=== PATIENT | female | born 1955 | race Caucasian/White ===

== ENCOUNTER 2023-12-15 14:51 | Outpatient (AMB) | payer MEDICARE, SELFPAY ==
--- NOTE | 2023-12-15 15:04 | MHC.PC.OV ---
Vital Signs 12/15/23 15:20 Height 5 ft 0.24 in Weight 144 lb 2 oz BMI 27.9 BP 114/72 Blood Pressure Location Lt brachial Position Sitting Respiration 16 Pulse 83 Temp 97.9 F Temp Source Oral Pulse Oximetry (%) 97 Oxygen Delivery Method Room Air Intake Visit Reasons: NPV needs sooner appt Intake Note: New patient visit Allergies No Known Allergies Allergy (Verified 12/15/23 15:12) Medication List - Last Reconciled 12/15/23 by Carolina Boyce MD aspirin 81 mg PO DAILY atorvastatin 40 mg PO DAILY levothyroxine 75 mcg PO DAILY mesalamine 4.8 grams PO DAILY nabumetone 500 mg PO BID semaglutide 0.5 mg (0.736 mL) subcut QWEEK 12 weeks sertraline 100 mg PO DAILY Tobacco use date assessed: 12/15/23 Fall risk assessment: No Falls in past year Last assessed Fall Risk: 12/15/23 Dental Screening Dental Screen Date: 12/15/23 Did you have a dental visit in the last 12 months?: Yes Did you have a dental problem in the last 6 months where you did not have access to dental care?: No Was dental information given to patient?: Patient has dentist HPI HPI Comments History of Present Illness Details 67 year old female with a past medical history of hypothyroid, crohns, low back pain, ataxia, weakness presenting for follow up Neuro: Follows with Dr Barrett, [facility] [place]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 Near but not compressing the 7th/8th craiinia nerve. Thought unlike causing the balance issues that prompted imaging. Referred to neurology for abalance/vestibular deficit/symptoms, previous infarcts. She saw Dr Ko. Worked up for common causes of neuropathy. Completed PT. Sleep study completed. She has a history of spinal fusion in 2013. [place] diffusely weak on the right side. [place] likely body was a puppet, poor coordination, and excessive fatigue -MRI chronic right gangliocapsular lacunar infarcts. Mild scattered foci of T2 hyperintensity in the supratentorial white matter, nonspecific. No enhancing lesions to indicate active infammatory of demyelinating process -0.7cm left cerebellopontine a ngle meniningioma in close proximity to the left 7th and 8th crania nerves Crohn-On mesalamin 1.2gmx4. Follows [facility], Dr Sanford Hypothyroid-On levothyroxine. Successfully lost over 30 pounds with ozempic. Insurance no longer covering any GLP. She felt so well on the medication Anxiety/depression. Stable on zoloft Mammo UTD Colonoscopy is up to date ROS CONSTITUTIONAL: Denies weight loss, fever and chills. HEENT: Denies changes in vision and hearing. RESPIRATORY: Denies SOB and cough. CV: Denies palpitations and CP GI: Denies abdominal pain, nausea, vomiting and diarrhea. : Denies dysuria and urinary frequency. MSK: Denies new myalgia and joint pain. SKIN: Denies rash and pruritus. NEUROLOGICAL: Denies headache PSYCHIATRIC: Denies recent changes in mood. PHYSICAL EXAM: GENERAL: Alert and oriented x 3. NAD EYES: EOMI. Anicteric. HENT: Moist mucous membranes. No scleral icterus. No cervical lymphadenopathy. LUNGS: Clear to auscultation bilaterally. CARDIOVASCULAR: Regular rate and rhythm. No murmur. No JVD. ABDOMEN: Soft, non-tender +bs EXTREMITIES: No edema. Non-tender. SKIN: No rashes or lesions. Warm. NEUROLOGIC: No focal neurological deficits. CN II-XII grossly intact PSYCHIATRIC: Cooperative. Appropriate mood and affect [facility] Medical History (Updated 12/21/23 @ 09:37 by Carolina Boyce MD) Anxiety Crohn disease Palpitations Hypercholesterolemia Surgical History (Updated 12/15/23 @ 15:23 by Rosemarie Joseph CMA) H/O: hysterectomy H/O spinal fusion Family History (Updated 12/15/23 @ 15:24 by Rosemarie Joseph CMA) Sister Heart attack Mother Acute myocardial infarction Diabetes Heart disease Father Alzheimer disease Parkinson disease Depression Cardiovascular disease Paternal Uncle Substance use Paternal Grandfather Depression Maternal Grandmother Diabetes Paternal Grandmother Diabetes Other FH: mental illness Social History Housing: House Patient Tobacco Use Status: Former Tobacco user Years Smoked: Teenage years e-Cigarette/Vaping Use: Never Used Second Hand Smoke Exposure: No service: No 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 1. Little interest or pleasure in doing things: not at all 2. Feeling down, depressed, or hopeless: not at all 3. Trouble falling or staying asleep, or sleeping too much: nearly every day 4. Feeling tired or having little energy: several days 5. Poor appetite or overeating: not at all 6. Feeling bad about yourself - or that you are a failure or have let yourself or your family down: not at all 7. Trouble concentrating on things, such as reading the newspaper or watching television: not at all 8. Moving or speaking so slowly that other people could have noticed. Or the opposite - being so fidgety or restless that you have been moving around a lot more than usual: not at all 9. Thoughts that you would be better off or of hurting yourself in some way: not at all Total score: 4 Depression Screening Interpretation: Positive Depression Screening Follow-up: Existing condition Depression Screening Done: Yes 62850 - PHQ-9 Billing: Yes Source: Developed by Drs. Ronnie Obregon, Lucy Youssef, Ronny Murphy and colleagues, with an educational avelina from [employer]. Thrive Questionnaire Date Thrive assessed: 12/15/23 I am a: Patient What is your living situation today?: I have a steady place to live Within the past 12 months, did the food you bought not last and you didn't have the money to get more?: Never true Within the past 12 months, did you worry whether your food would run out before you got money to buy more?: Never true Do you have trouble paying for medicines?: No Do you have trouble getting transportation to medical appointments?: No Do you have trouble paying your heating and electricity bill?: No Do you have trouble taking care of your child, family member or friend?: No Do you have trouble with day-to-day activities such as bathing, preparing meals, shopping, managing finances, etc.?: No Are you currently unemployed and looking for a job?: No Are you interested in more education?: No Please select the resources that you would like help with: None Currently or been in a relationship where the following occur: no concerns reported THRIVE Score: 0 AUDIT C Alcohol Use Questionnaire (AUDIT-C) 1. How often do you have a drink containing alcohol?: 2-4 times a month 2. How many drinks containing alcohol do you have on a typical day when you are drinking?: 1 or 2 3. How often do you have six or more drinks on one occasion?: Never Total Score: 2 ANN MARIE-7 AMB Questionnaire ANN MARIE-7 Date ANN MARIE - 7 assessed: 12/15/23 Feeling nervous, anxious, or on edge: 1 = Several days Not being able to stop or control worryin = Several days Worrying too much about different things: 1 = Several days Trouble relaxin = Not at all Being so restless that it is hard to sit still: 0 = Not at all Becoming easily annoyed or irritable: 0 = Not at all Feeling afraid as if something awful might happen: 0 = Not at all Total ANN MARIE-7 score (0-4 normal; 5-9 mild; 10-14 moderate; 15-21 severe): 3 Source: Developed by Drs. Ronnie Obregon, Lucy Youssef, Ronny Murphy and colleagues, with an educational avelina from [employer]. ANN MARIE-7 Assessment Billing ANN MARIE-7 Assessment Tool: ANN MARIE-7 Assessment 58613 Physical exam (Primary Care) Vital Signs: Last Vital Signs Temp 97.9 F 12/15/23 15:20 Pulse 83 12/15/23 15:20 Resp 16 12/15/23 15:20 BP 114/72 12/15/23 15:20 Pulse Ox 97 12/15/23 15:20 Oxygen Delivery Method Room Air 12/15/23 15:20 BMI result Body Mass Index 27.9 Tobacco/Smoking Status: Tobacco use Status Tobacco use date assessed 12/15/23 12/15/23 15:25 Patient Tobacco Use Status Former Tobacco user 12/15/23 15:25 e-Cigarette/Vaping Use Never Used 12/15/23 15:25 PHQ-9: PHQ-9 Score PHQ-9: Total score 4 12/21/23 09:17 Depression Screening Interpretation: Positive Depression Screening Follow-up: Existing condition Thrive Assessment: Date of Thrive Assessment Date Thrive assessed 12/15/23 12/15/23 15:25 Currently or been in a relationship where the following occur: no concerns reported Assessment and Plan Assessment & Plan (1) Cerebellopontine angle meningioma: Comment: Follows with neurosurgery at [facility] Code(s): D32.0 - Benign neoplasm of cerebral meninges (2) Hx of obesity: Comment: GLP not covered Code(s): Z86.39 - Personal history of other endocrine, nutritional and metabolic disease (3) Hypothyroid: Comment: Stable on levothyroxine Code(s): E03.9 - Hypothyroidism, unspecified Qualifiers: Hypothyroidism type: unspecified Qualified Code(s): E03.9 - Hypothyroidism, unspecified (4) Anxiety: Code(s): F41.9 - Anxiety disorder, unspecified (5) Crohn disease: Code(s): K50.90 - Crohn's disease, unspecified, without complications Qualifiers: Digestive disease complication type: unspecified complication Gastrointestinal tract location: unspecified location Qualified Code(s): K50.919 - Crohn's disease, unspecified, with unspecified complications (6) Hypercholesterolemia: Code(s): E78.00 - Pure hypercholesterolemia, unspecified Medications: New tramadol 50 mg PO TID PRN 21 tabs 0RF pain 7 days semaglutide 0.5 mg (0.736 mL) subcut QWEEK 12 weeks 9 mL 3RF nabumetone 500 mg PO BID 180 tabs 3RF 90 days Changed From semaglutide 2 mg (2.944 mL) subcut QWEEK 12 weeks 9 mL 3RF To semaglutide 0.5 mg (0.736 mL) subcut QWEEK 12 weeks 9 mL 3RF Coding Level of Care Code Est Pt Level 5 (74827) Diagnoses 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 Hx of obesity Z86.39 Hypothyroidism, unspecified type E03.9 Hypothyroidism type: unspecified Anxiety F41.9 Crohn's disease with complication, unspecified gastrointestinal tract location K50.919 Digestive disease complication type: unspecified complication Gastrointestinal tract location: unspecified location Hypercholesterolemia E78.00 Additional Codes ANN MARIE-7 Assessment Billing - ANN MARIE-7 Assessment Tool: ANN MARIE-7 Assessment 32525 ([id number]) Time Spent (min) 55
[2023-12-15 15:20] VITALS: BP 114/72; PULSE 83; RESP 16; TEMP 36.6; O2SAT 97; BMI 27.9
== END 2023-12-15 16:06 | disposition home or self-care (01) ==
PROVIDERS: PCP Internal Medicine; Visit Provider Internal Medicine
DX: D32.0 Benign neoplasm of cerebral meninges (principal); K50.919 Crohn's disease, unspecified, with unspecified complications; Z86.39 Personal history of other endocrine, nutritional and metabolic disease; E03.9 Hypothyroidism, unspecified; F41.9 Anxiety disorder, unspecified; E78.00 Pure hypercholesterolemia, unspecified
CPT/HCPCS: 99215

== ENCOUNTER 2024-06-07 15:46 | Outpatient (AMB) | payer MEDICARE, SELFPAY ==
--- NOTE | 2024-06-07 16:02 | MHC.PC.OV ---
Vital Signs 06/07/24 16:05 06/07/24 16:09 Height 5 ft 0.24 in Weight 147 lb 8 oz BMI 28.6 BP 158/94 H 158/92 H Blood Pressure Location Lt brachial Lt brachial Position Sitting Pulse 72 Pulse Source Pulse Oximeter Pulse Oximetry (%) 98 Oxygen Delivery Method Room Air Intake Visit Reasons: ANNUAL PHYSICAL Intake Note: Physical Allergies No Known Allergies Allergy (Verified 06/07/24 16:02) Tobacco use date assessed: 12/15/23 Dental Screening Dental Screen Date: 12/15/23 HPI HPI Comments History of Present Illness Details 68 year old female with a past medical history of hypothyroid, crohns, low back pain, ataxia, weakness presenting for annual exam Neuro: Follows with Dr Barrett, [facility] [place]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 Near but not compressing the 7th/8th craiinia nerve. Thought unlike causing the balance issues that prompted imaging. Referred to neurology for abalance/vestibular deficit/symptoms, previous infarcts. She saw Dr Ko. Worked up for common causes of neuropathy. Completed PT. Sleep study completed. She has a history of spinal fusion in 2012. [place] diffusely weak on the right side. [place] likely body was a puppet, poor coordination, and excessive fatigue -MRI chronic right gangliocapsular lacunar infarcts. Mild scattered foci of T2 hyperintensity in the supratentorial white matter, nonspecific. No enhancing lesions to indicate active infammatory of demyelinating process -0.7cm left cerebellopontine a ngle meniningioma in close proximity to the left 7th and 8th crania nerves Crohn-On mesalamine 1.2gmx4. Follows [facility], Dr Sanford. Thinks she is due in 2 years for colonoscopy Hypothyroid-Stopped taking levothyroxine. Successfully lost over 30 pounds with ozempic but has gained a few pounds recently. Insurance no longer covering any GLP. She felt so well on the medication Anxiety/depression. Stable on zoloft Mammo 03/2024 Colonoscopy is up to date ROS CONSTITUTIONAL: Denies weight loss, fever and chills. HEENT: Denies changes in vision and hearing. RESPIRATORY: Denies SOB and cough. CV: Denies palpitations and CP GI: Denies abdominal pain, nausea, vomiting and diarrhea. : Denies dysuria and urinary frequency. MSK: Denies new myalgia and joint pain. SKIN: Denies rash and pruritus. NEUROLOGICAL: Denies headache PSYCHIATRIC: Denies recent changes in mood. PHYSICAL EXAM: GENERAL: Alert and oriented x 3. NAD EYES: EOMI. Anicteric. HENT: Moist mucous membranes. No scleral icterus. No cervical lymphadenopathy. LUNGS: Clear to auscultation bilaterally. CARDIOVASCULAR: Regular rate and rhythm. No murmur. No JVD. ABDOMEN: Soft, non-tender +bs EXTREMITIES: No edema. Non-tender. SKIN: sun damaged skin NEUROLOGIC: No focal neurological deficits. CN II-XII grossly intact PSYCHIATRIC: Cooperative. Appropriate mood and affect [facility] Medical History (Updated 06/08/24 @ 10:57 by Carolina Boyce MD) Anxiety Crohn disease Palpitations Hypercholesterolemia Surgical History (Updated 12/15/23 @ 15:23 by Rosemarie Joseph CMA) H/O: hysterectomy H/O spinal fusion Family History (Updated 12/15/23 @ 15:24 by Rosemarie Joseph CMA) Sister Heart attack Mother Acute myocardial infarction Diabetes Heart disease Father Alzheimer disease Parkinson disease Depression Cardiovascular disease Paternal Uncle Substance use Paternal Grandfather Depression Maternal Grandmother Diabetes Paternal Grandmother Diabetes Other FH: mental illness Social History Housing: House Patient Tobacco Use Status: Former Tobacco user Years Smoked: Teenage years e-Cigarette/Vaping Use: Never Used Second Hand Smoke Exposure: No service: No 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 1. Little interest or pleasure in doing things: not at all 2. Feeling down, depressed, or hopeless: not at all 3. Trouble falling or staying asleep, or sleeping too much: more than half the days 4. Feeling tired or having little energy: several days 5. Poor appetite or overeating: not at all 6. Feeling bad about yourself - or that you are a failure or have let yourself or your family down: not at all 7. Trouble concentrating on things, such as reading the newspaper or watching television: not at all 8. Moving or speaking so slowly that other people could have noticed. Or the opposite - being so fidgety or restless that you have been moving around a lot more than usual: not at all 9. Thoughts that you would be better off or of hurting yourself in some way: not at all Total score: 3 Depression Screening Interpretation: Negative Depression Screening Done: Yes 35833 - PHQ-9 Billing: Yes Source: Developed by Drs. Ronnie Obregon, Lucy Youssef, Ronny Murphy and colleagues, with an educational avelina from [employer]. Thrive Questionnaire Date Thrive assessed: 05/31/24 I am a: Patient What is your living situation today?: I have a steady place to live Within the past 12 months, did the food you bought not last and you didn't have the money to get more?: Never true Within the past 12 months, did you worry whether your food would run out before you got money to buy more?: Never true Do you have trouble paying for medicines?: No Do you have trouble getting transportation to medical appointments?: No Do you have trouble paying your heating and electricity bill?: No Do you have trouble taking care of your child, family member or friend?: No Do you have trouble with day-to-day activities such as bathing, preparing meals, shopping, managing finances, etc.?: No Are you currently unemployed and looking for a job?: No Are you interested in more education?: No Please select the resources that you would like help with: None Currently or been in a relationship where the following occur: No concerns reported THRIVE Score: 0 AUDIT C Alcohol Use Questionnaire (AUDIT-C) 1. How often do you have a drink containing alcohol?: 2-3 times a week 2. How many drinks containing alcohol do you have on a typical day when you are drinking?: 1 or 2 3. How often do you have six or more drinks on one occasion?: Never Total Score: 3 ANN MARIE-7 AMB Questionnaire ANN MARIE-7 Date ANN MARIE - 7 assessed: 12/15/23 Feeling nervous, anxious, or on edge: 0 = Not at all Not being able to stop or control worryin = Several days Worrying too much about different things: 1 = Several days Trouble relaxin = Not at all Being so restless that it is hard to sit still: 0 = Not at all Becoming easily annoyed or irritable: 1 = Several days Feeling afraid as if something awful might happen: 0 = Not at all Total ANN MARIE-7 score (0-4 normal; 5-9 mild; 10-14 moderate; 15-21 severe): 3 Source: Developed by Drs. Ronnie Obregon, Lucy Youssef, Ronny Murphy and colleagues, with an educational avelina from [employer]. Physical exam (Primary Care) Vital Signs: Last Vital Signs Pulse 72 06/07/24 16:05 BP 158/92 H 06/07/24 16:09 Pulse Ox 98 06/07/24 16:05 Oxygen Delivery Method Room Air 06/07/24 16:05 BMI result Body Mass Index 28.6 Tobacco/Smoking Status: Tobacco use Status Tobacco use date assessed 12/15/23 06/07/24 16:11 Patient Tobacco Use Status Former Tobacco user 06/07/24 16:11 e-Cigarette/Vaping Use Never Used 06/07/24 16:11 PHQ-9: PHQ-9 Score PHQ-9: Total score 3 06/08/24 10:59 Depression Screening Interpretation: Negative Thrive Assessment: Date of Thrive Assessment Date Thrive assessed 05/31/24 06/07/24 16:11 Currently or been in a relationship where the following occur: No concerns reported Coding Level of Care Code Est Pt Prev Care >65y(67846) Diagnoses Physical exam Z00.00 Hypothyroidism, unspecified type E03.9 Hypothyroidism type: unspecified Hypercholesterolemia E78.00 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 Crohn's disease with complication, unspecified gastrointestinal tract location K50.919 Digestive disease complication type: unspecified complication Gastrointestinal tract location: unspecified location Additional Codes PHQ-9 - 20080 - PHQ-9 Billing: Yes ([id number]) Assessment & Plan Assessment & Plan (1) Physical exam: Code(s): Z00.00 - Encounter for general adult medical examination without abnormal findings Category: Medical Plan: Preventive measures discussed. She is up to date (2) Hypothyroid: Comment: Stable on levothyroxine Code(s): E03.9 - Hypothyroidism, unspecified Category: Medical Qualifiers: Hypothyroidism type: unspecified Qualified Code(s): E03.9 - Hypothyroidism, unspecified Plan: Check thyroid labs off meds (3) Hypercholesterolemia: Code(s): E78.00 - Pure hypercholesterolemia, unspecified Category: Medical Plan: stable (4) Cerebellopontine angle meningioma: Comment: Follows with neurosurgery at [facility] Code(s): D32.0 - Benign neoplasm of cerebral meninges Category: Medical Plan: continue follow up as recommended (5) Crohn disease: Code(s): K50.90 - Crohn's disease, unspecified, without complications Category: Medical Qualifiers: Digestive disease complication type: unspecified complication Gastrointestinal tract location: unspecified location Qualified Code(s): K50.919 - Crohn's disease, unspecified, with unspecified complications Plan: Sees [facility]. UTD Orders: Orders Lipid Panel 06/07/24 E03.9 - Hypothyroidism, unspecified, E78.00 - Pure hypercholesterolemia, unspecified, F41.9 - Anxiety disorder, unspecified, Z13.0 - Encounter for screening for diseases of the blood and blood-forming organs and certain disorders involving the immune mechanism TSH reflex Free T4 06/07/24 E03.9 - Hypothyroidism, unspecified, E78.00 - Pure hypercholesterolemia, unspecified, F41.9 - Anxiety disorder, unspecified, Z13.0 - Encounter for screening for diseases of the blood and blood-forming organs and certain disorders involving the immune mechanism Thyroid Peroxidase Antibodies 06/07/24 E03.9 - Hypothyroidism, unspecified, E78.00 - Pure hypercholesterolemia, unspecified, F41.9 - Anxiety disorder, unspecified, Z13.0 - Encounter for screening for diseases of the blood and blood-forming organs and certain disorders involving the immune mechanism Complete Blood Count Auto Diff 06/07/24 E03.9 - Hypothyroidism, unspecified, E78.00 - Pure hypercholesterolemia, unspecified, F41.9 - Anxiety disorder, unspecified, Z13.0 - Encounter for screening for diseases of the blood and blood-forming organs and certain disorders involving the immune mechanism Comprehensive Met. Panel 06/07/24 E03.9 - Hypothyroidism, unspecified, E78.00 - Pure hypercholesterolemia, unspecified, F41.9 - Anxiety disorder, unspecified, Z13.0 - Encounter for screening for diseases of the blood and blood-forming organs and certain disorders involving the immune mechanism Hemoglobin A1c 06/07/24 E03.9 - Hypothyroidism, unspecified, E78.00 - Pure hypercholesterolemia, unspecified, F41.9 - Anxiety disorder, unspecified, Z13.0 - Encounter for screening for diseases of the blood and blood-forming organs and certain disorders involving the immune mechanism Medications: Refilled tramadol 50 mg PO TID PRN 21 tabs 0RF pain 7 days atorvastatin 40 mg PO DAILY 90 tabs 3RF
[2024-06-07 16:05] VITALS: BP 158/94; PULSE 72; O2SAT 98; BMI 28.6
[2024-06-07 16:09] VITALS: BP 158/92
== END 2024-06-07 16:52 | disposition home or self-care (01) ==
PROVIDERS: PCP Internal Medicine; Visit Provider Internal Medicine
DX: E03.9 Hypothyroidism, unspecified (principal); D32.0 Benign neoplasm of cerebral meninges; K50.919 Crohn's disease, unspecified, with unspecified complications; E78.00 Pure hypercholesterolemia, unspecified

== ENCOUNTER → 2024-06-07 15:46 | Outpatient (BNVA) | payer MEDICARE, SELFPAY | PROVIDERS: PCP Internal Medicine; Visit Provider Internal Medicine | DX: Z00.00 Encounter for general adult medical examination without abnormal findings (principal); E03.9 Hypothyroidism, unspecified; E78.00 Pure hypercholesterolemia, unspecified; D32.0 Benign neoplasm of cerebral meninges; K50.919 Crohn's disease, unspecified, with unspecified complications; F41.9 Anxiety disorder, unspecified; F32.A Depression, unspecified; Z79.899 Other long term (current) drug therapy | CPT/HCPCS: 96127; 99212 ==

== ENCOUNTER 2024-06-18 07:32 | Outpatient (REF) | payer MEDICARE, SELFPAY ==
[2024-06-18 11:12] LABS: MANUAL DIFF FLAG NO
[2024-06-18 11:19] LABS: Basophils Percent Auto 0.6 % (0-2); Eosinophils Absolute Auto 0.2 X10*3/uL (0.0-0.4); Eosinophils Percent Auto 3.1 % (0-4); Hemoglobin 13.1 g/dl (12.0-16.0); Imm Gran Abs Auto 0.01 X10*3/uL (0.00-0.03); Imm Gran Pct Auto 0.2 % (0.0-0.4); Lymphocytes Absolute Auto 1.2 X10*3/uL (1.2-4.9); Mean Corpuscular Hemoglobin 30.3 pg (27.0-33.0); Mean Corpuscular Volume 94.9 fL (80.0-98.0); Mean Platelet Volume 10.2 fL (9.4-12.3); Monocytes Absolute Auto 0.4 X10*3/uL (0.1-1.2); Monocytes Percent Auto 9.1 % (2-11); Neutrophils Absolute Auto 3.1 x10*3/uL (2.0-8.3); Platelet Count 332 X10*3/uL (160-400); Red Blood Count 4.32 X10*6/uL (4.20-5.50); Red Cell Distribution Width 13.3 % (11.0-16.0); White Blood Count 4.8 X10*3/uL (4.8-10.8)
[2024-06-18 11:34] LABS: Estimated Average Glucose 97 mg/dL; Hemoglobin A1C 103.4607 umol/L; Total Hemoglobin (HGBA1C) 3367.8814 umol/L
[2024-06-18 11:57] LABS: Alanine Aminotransferase 25 U/L (0-31); Albumin Level 4.1 g/dL (3.5-5.0); Alkaline Phosphatase 67 U/L (39-117); Anion Gap 8 (12-20); Aspartate Amino Transferase 27 U/L (5-31); Bilirubin Total 0.5 mg/dL (0.0-1.0); Blood Urea Nitrogen 16 mg/dL (9-16); Calcium 9.4 mg/dL (8.4-10.2); Carbon Dioxide 30 mmol/L (22-29); Chloride 109 mmol/L (96-108); Cholesterol 155 mg/dL (<200); Estimated Glomerular Filt Rate > 60; Glucose Random 73 mg/dL (60-115); HDL Cholesterol 54 mg/dL (>40); LDL Cholesterol Calculated 82 mg/dL (<100); Sodium 143 mmol/L (135-145); TSH reflex Free T4 2.26 uIU/mL (0.32-4.0); Total Protein 7.3 g/dL (6.5-8.0); Triglycerides 96 mg/dL (<150)
[2024-06-19 10:34] LABS: Thyroid Peroxidase Antibodies 1 IU/mL (<9)
== END 2024-06-18 07:33 | disposition home or self-care (01) ==
LOC: HO.WFDLDS 07:32
PROVIDERS: Visit Provider Internal Medicine
DX: E03.9 Hypothyroidism, unspecified (principal); E78.00 Pure hypercholesterolemia, unspecified; F41.9 Anxiety disorder, unspecified; Z13.0 Encounter for screening for diseases of the blood and blood-forming organs and certain disorders involving the immune mechanism; Z13.1 Encounter for screening for diabetes mellitus
CPT/HCPCS: 36415; 80053; 80061; 83036; 84443; 85025; 86376

== ENCOUNTER 2024-12-07 13:36 | Outpatient (AMB) | payer MEDICARE, SELFPAY ==
--- NOTE | 2024-12-07 13:41 | MHC.PC.OV ---
Vital Signs 12/07/24 13:43 Height 5 ft 0.24 in Weight 157 lb 8 oz BMI 30.5 BP 116/66 Blood Pressure Location Rt brachial Position Sitting Respiration 12 Pulse 90 Pulse Source Pulse Oximeter Pulse Oximetry (%) 97 Oxygen Delivery Method Room Air Intake Visit Reasons: f/up Intake Note: Follow up Customer Facilities Supervisor Required: No Allergies No Known Allergies Allergy (Verified 12/07/24 13:42) Tobacco use date assessed: 12/07/24 Fall risk assessment: No Falls in past year Last assessed Fall Risk: 12/07/24 Dental Screening Dental Screen Date: 12/07/24 Did you have a dental visit in the last 12 months?: Yes Did you have a dental problem in the last 6 months where you did not have access to dental care?: No Was dental information given to patient?: Patient has dentist HPI HPI Comments History of Present Illness Details 69 year old female with a past medical history of hypothyroid, crohns, low back pain, ataxia, obesity, weakness presenting for follow up Neuro: -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 Near but not compressing the 7th/8th cranial nerve. Thought unlike causing the balance issues that prompted imaging. Referred to neurology for balance/vestibular deficit/symptoms, previous infarcts. She saw Dr Ko. Worked up for common causes of neuropathy. Completed PT. Sleep study completed. She has a history of spinal fusion in 2012. [place] diffusely weak on the right side. [place] likely body was a puppet, poor coordination, and excessive fatigue -MRI chronic right gangliocapsular lacunar infarcts. Mild scattered foci of T2 hyperintensity in the supratentorial white matter, nonspecific. 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 Follows [facility], Dr Sanford. Hypothyroid-Stopped taking levothyroxine. Successfully lost over 30 pounds with ozempic but has gained a few pounds recently. Insurance no longer covering any GLP. She felt so well on the medication Anxiety/depression. Stable on zoloft. Unfortunately has gained weight back, slowly despite diet and exercise. Previously took GLP for >50 pound weight loss and did excellent with the medication Mammo 03/2024 Colonoscopy is up to date ROS CONSTITUTIONAL: Denies weight loss, fever and chills. HEENT: Denies changes in vision and hearing. RESPIRATORY: Denies SOB and cough. CV: Denies palpitations and CP GI: Denies abdominal pain, nausea, vomiting and diarrhea. : Denies dysuria and urinary frequency. MSK: Denies new myalgia and joint pain. SKIN: Denies rash and pruritus. NEUROLOGICAL: Denies headache PSYCHIATRIC: Denies recent changes in mood. PHYSICAL EXAM: GENERAL: Alert and oriented x 3. NAD EYES: EOMI. Anicteric. HENT: Moist mucous membranes. No scleral icterus. No cervical lymphadenopathy. LUNGS: Clear to auscultation bilaterally. CARDIOVASCULAR: Regular rate and rhythm. No murmur. No JVD. ABDOMEN: Soft, non-tender +bs EXTREMITIES: No edema. Non-tender. SKIN: sun damaged skin NEUROLOGIC: No focal neurological deficits. CN II-XII grossly intact PSYCHIATRIC: Cooperative. Appropriate mood and affect [facility] Medical History Anxiety Crohn disease Palpitations Hypercholesterolemia Surgical History H/O: hysterectomy H/O spinal fusion Family History Sister Heart attack Mother Acute myocardial infarction Diabetes Heart disease Father Alzheimer disease Parkinson disease Depression Cardiovascular disease Paternal Uncle Substance use Paternal Grandfather Depression Maternal Grandmother Diabetes Paternal Grandmother Diabetes Other FH: mental illness Social History Housing: House Alcohol intake: current Patient Tobacco Use Status: Former Tobacco user Years Smoked: Teenage years e-Cigarette/Vaping Use: Never Used Second Hand Smoke Exposure: No Use of substances other than those prescribed or required for medical reasons: No service: No Current occupational status: employed ([employer]) and retired Current occupation: Preschool Current occupational exposures/hazards: No Cognitive needs: No Hearing needs: No Vision needs: Yes (glasses) Questionnaire PHQ-9 Over the last 2 weeks, how often have you been bothered by any of the following problems? 1. Little interest or pleasure in doing things: not at all 2. Feeling down, depressed, or hopeless: not at all 3. Trouble falling or staying asleep, or sleeping too much: more than half the days 4. Feeling tired or having little energy: more than half the days 5. Poor appetite or overeating: not at all 6. Feeling bad about yourself - or that you are a failure or have let yourself or your family down: not at all 7. Trouble concentrating on things, such as reading the newspaper or watching television: not at all 8. Moving or speaking so slowly that other people could have noticed. Or the opposite - being so fidgety or restless that you have been moving around a lot more than usual: not at all 9. Thoughts that you would be better off or of hurting yourself in some way: not at all Total score: 4 Depression Screening Interpretation: Negative Depression Screening Done: Yes 54534 - PHQ-9 Billing: Yes Source: Developed by Drs. Ronnie Obregon, Lucy Youssef, Ronny Murphy and colleagues, with an educational avelina from [facility]. Thrive Questionnaire Date Thrive assessed: 11/30/24 I am a: Patient What is your living situation today?: I have a steady place to live Within the past 12 months, did the food you bought not last and you didn't have the money to get more?: Never true Within the past 12 months, did you worry whether your food would run out before you got money to buy more?: Never true Do you have trouble paying for medicines?: No Do you have trouble getting transportation to medical appointments?: No Do you have trouble paying your heating and electricity bill?: No Do you have trouble taking care of your child, family member or friend?: No Do you have trouble with day-to-day activities such as bathing, preparing meals, shopping, managing finances, etc.?: No Are you currently unemployed and looking for a job?: No Are you interested in more education?: No Please select the resources that you would like help with: None Currently or been in a relationship where the following occur: No concerns reported THRIVE Score: 0 AUDIT C Alcohol Use Questionnaire (AUDIT-C) 1. How often do you have a drink containing alcohol?: 2-3 times a week 2. How many drinks containing alcohol do you have on a typical day when you are drinking?: 1 or 2 3. How often do you have six or more drinks on one occasion?: Never Total Score: 3 ANN MARIE-7 AMB Questionnaire ANN MARIE-7 Date ANN MARIE - 7 assessed: 12/07/24 Feeling nervous, anxious, or on edge: 0 = Not at all Not being able to stop or control worryin = Not at all Worrying too much about different things: 1 = Several days Trouble relaxin = Not at all Being so restless that it is hard to sit still: 0 = Not at all Becoming easily annoyed or irritable: 0 = Not at all Feeling afraid as if something awful might happen: 0 = Not at all Total ANN MARIE-7 score (0-4 normal; 5-9 mild; 10-14 moderate; 15-21 severe): 1 Source: Developed by Drs. Ronnie Obregon, Lucy Youssef, Ronny Murphy and colleagues, with an educational avelina from [facility]. ANN MARIE-7 Assessment Billing ANN MARIE-7 Assessment Tool: ANN MARIE-7 Assessment 64096 Physical exam (Primary Care) Vital Signs: Last Vital Signs Pulse 90 12/07/24 13:43 Resp 12 12/07/24 13:43 BP 116/66 12/07/24 13:43 Pulse Ox 97 12/07/24 13:43 Oxygen Delivery Method Room Air 12/07/24 13:43 BMI result Body Mass Index 30.5 Tobacco/Smoking Status: Tobacco use Status Tobacco use date assessed 12/07/24 12/07/24 16:19 Patient Tobacco Use Status Former Tobacco user 12/07/24 13:43 e-Cigarette/Vaping Use Never Used 12/07/24 13:43 PHQ-9: PHQ-9 Score PHQ-9: Total score 4 12/08/24 13:31 Depression Screening Interpretation: Negative Thrive Assessment: Date of Thrive Assessment Date Thrive assessed 11/30/24 12/07/24 13:43 Currently or been in a relationship where the following occur: No concerns reported Coding Level of Care Code Est Pt Level 4 (07782) Diagnoses Hypothyroidism, unspecified type E03.9 Hypothyroidism type: unspecified Hypercholesterolemia E78.00 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 Anxiety F41.9 Additional Codes ANN MARIE-7 Assessment Billing - ANN MARIE-7 Assessment Tool: ANN MARIE-7 Assessment 92309 ([id number]) PHQ-9 - 66324 - PHQ-9 Billing: Yes ([id number]) Assessment & Plan Assessment & Plan (1) Hypothyroid: Comment: Stable on levothyroxine Code(s): E03.9 - Hypothyroidism, unspecified Category: Medical Qualifiers: Hypothyroidism type: unspecified Qualified Code(s): E03.9 - Hypothyroidism, unspecified (2) Hypercholesterolemia: Code(s): E78.00 - Pure hypercholesterolemia, unspecified Category: Medical (3) Cerebellopontine angle meningioma: Comment: Follows with neurosurgery at [facility] [place] Code(s): D32.0 - Benign neoplasm of cerebral meninges Category: Medical (4) Anxiety: Code(s): F41.9 - Anxiety disorder, unspecified Category: Medical Plan Obesity-has gained back some weight off GLP though overall keeping most of the prior 50 pound weight loss off. It would be beneficial for her to restart the GLP especially in light of hyperlipidemia, h/o low back issues. HLD-stable on medications Depression/anxiety s stable on sertraline Orders: Orders Lipid Panel 6 Months E03.9 - Hypothyroidism, unspecified, E78.00 - Pure hypercholesterolemia, unspecified, F41.9 - Anxiety disorder, unspecified, K50.919 - Crohn's disease, unspecified, with unspecified complications, Z86.39 - Personal history of other endocrine, nutritional and metabolic disease Complete Blood Count Auto Diff 6 Months E03.9 - Hypothyroidism, unspecified, E78.00 - Pure hypercholesterolemia, unspecified, F41.9 - Anxiety disorder, unspecified, K50.919 - Crohn's disease, unspecified, with unspecified complications, Z86.39 - Personal history of other endocrine, nutritional and metabolic disease Comprehensive Met. Panel 6 Months E03.9 - Hypothyroidism, unspecified, E78.00 - Pure hypercholesterolemia, unspecified, F41.9 - Anxiety disorder, unspecified, K50.919 - Crohn's disease, unspecified, with unspecified complications, Z86.39 - Personal history of other endocrine, nutritional and metabolic disease Hemoglobin A1c 6 Months E03.9 - Hypothyroidism, unspecified, E78.00 - Pure hypercholesterolemia, unspecified, F41.9 - Anxiety disorder, unspecified, K50.919 - Crohn's disease, unspecified, with unspecified complications, Z86.39 - Personal history of other endocrine, nutritional and metabolic disease Medications: New Ozempic (semaglutide) for 4 weeks 0.25 mg (0.368 mL) subcut QWEEK 3 mL 1RF NS E66.9 - Obesity, unspecified, E78.00 - Pure hypercholesterolemia, unspecified Refilled tramadol 50 mg PO TID PRN 84 tabs 0RF pain 28 days
[2024-12-07 13:43] VITALS: BP 116/66; PULSE 90; RESP 12; O2SAT 97; BMI 30.5
--- OUTSIDE RECORDS SUMMARY | 2024-12-07 15:17 | XMS_ITS | Clinical Summary ---
Author Organization [address] Address [address] [place] [address] Phone Care Team Providers Care Wharf Labourer Name Role Phone Carolina Boyce MD Primary Care Provider [phone] Medications mesalamine (LIALDA) 1.2 gram EC tabletIndicati ons:Crohn's colitis (CMS/HCC V24, CMS/[facility] V28) TAKE 4 TABLETS ONCE DAILY 360 tablet 1 5 Active mesalamine (LIALDA) 1.2 gram EC tabletIndicati ons:Crohn's colitis (CMS/[facility] V24, CMS/[facility] V28) TAKE 4 TABLETS ONCE DAILY 360 tablet 1 4 12/01/19 25 Discontinued Encounters Date Type Department Care Team Description 09/16/2024 9:18 AM EDT - 09/16/2024 11:59 PM EDT Hospital Encounter Radiology Department - [address] [phone] Abnormal mammogram Discharge Disposition: Home or Self Care 09/16/2024 9:18 AM EDT - 09/16/2024 11:59 PM EDT Hospital Encounter Radiology Department - [address] [phone] Abnormal mammogram Discharge Disposition: Home or Self Care from Last 3 Months Surgical History Surgery Date Site/Laterality Comments OTHER SURGICAL HISTORY 12/30/2007 PROCEDURE: MO DILATION & CURETTAGE DX&/THER NONOBSTETRIC; COMMENT: endometrial polyp removed. SECTION PROCEDURE: MO DELIVERY ONLY TONSILLECTOMY ADENOIDECTOMY, BILATERAL MYRINGOTOMY AND TUBES age 19 PROCEDURE: MO TONSILLECTOMY & ADENOIDECTOMY <AGE 12 HYSTERECTOMY 05/17/2009 PROCEDURE: MO VAGINAL HYSTERECTOMY UTERUS 250 GM/<; COMMENT: LAVH / BSO OTHER SURGICAL HISTORY 05/04/13 PROCEDURE: APPLY SPINAL PROSTHETIC DEVICE; COMMENT: L4-5, L5-S1 fusion w/cages - Dr. Harper FINE NEEDLE ASPIRATION Bilateral PROCEDURE: FINE NDLE ASPRTN W/IMAGING GUIDANCE Medical History Medical History Date Comments Crohn disease ([facility] V24, [facility] V28) 02/2008 DX:Crohn disease ([facility]) Anxiety state, unspecified DX:An xiety state, unspecified Hypertension 06/23/08 DX:Hypertension Other specified personal his tory presenting hazards to health(V15.89) DX:Other specifie d personal history presenting hazards to health(V15.89) Breast mass 01/10/2009 DX:Breast mass Hypertension 06/23/2008 DX:Hypertension LBP radiating to both legs 01/22/2012 DX:LB P radiating to both legs; COMMENT: Dr. Harper 04/18 - fusion L4-5, L5-S1 Family History Medical History Relation Name Comments No Known Problems Daughter Vianca Arthritis Father Coronary artery disease Father bypa ss in his 50s No Known Problems Maternal Grandfather No Known Problems Maternal Grandmother Coronary artery disease Mother age 63 Diabetes Mother No Known Problems Other No Known Problems Paternal Grandfather Mental illness Paternal Grandmother depre ssion Arthritis Sister 1 Other: Fibromyalgia Sister 1 Mental illness Sister 2 said to have Sjogren's disorder No Known Problems Son Vladislav Breast cancer Neg Hx Relation Name Status Comments Daughter Vianca Alive Father Maternal Grandfather Maternal Grandmother Mother Other Paternal Grandfather Paternal Grandmother Sister 1 Alive Sister 2 Son Vladislav Alive Social History Tobacco Use Types Packs/Day Years Used Date Smoking Tobacco: Never Smokeless Tobacco: Never Alcohol Use Standard Drinks/Week Comments Yes 0 (1 standard drink = 0.6 oz pur e alcohol) Comments No Sex and Gender Information Value Date Recorded Sex Assigned at Not on file Legal Sex Female 1:22 AM EST Gender Identity Not on file Sexual Orientation Not on file Obstetrics History Para Term AB IAB SAB Ectopic Multiple Livin g Live Births 2 2 2 2 Date Outcome GA Total Labor Labor/2nd/3rd Weight Sex Type Anes PTL Gisell A1 A5 Name Clin Term Term Plan of Treatment Health Maintenance Due Date Last Done Comments Cholesterol Screening (Lipid Panel) 06/15/2022 Colorectal Cancer Screening: Colonoscopy 06/15/2022 Depression Screening 06/15/2022 Falls Risk Assessment 06/15/2022 Hepatitis C Screening 06/15/2022 Medicare Annual Wellness Visit 06/15/2022 Social Influencers of Health Screening 06/15/2022 COVID-19 Vaccine ( season) 2024 11/05/2021, 04/20/2021, 04/02/2021, Additional history exists Breast Cancer Screening 09/16/2026 09/17/19, 08/26/2024, 08/15/2023, Additional history exists Osteoporosis Screening (Bone Density Screening) 08/02/2029 08/02/2019 RSV Immunization Adult Patients (1 - 1-dose 75+ series) 2029 DTaP,Tdap,and Td Vaccines (4 - Td or Tdap) 11/28/2032 11/28/2022, 04/21/2013, 01/22/2012 Pneumococcal Vaccine: 50+ Years Completed 04/18/2022, 10/12/2020 Zoster Vaccines Completed 01/10/2023, 11/2022, 02/15/2015 Influenza Vaccine Completed 04/10/2024, , 03/19/2022, Additional history exists HIB Vaccines Aged Out No longer eligi ble based on patient's age to complete this topic HPV Vaccines Aged Out No longer eligi ble based on patient's age to complete this topic Hepatitis A Vaccines Aged Out No long er eligible based on patient's age to complete this topic Hepatitis B Vaccines Aged Out No long er eligible based on patient's age to complete this topic IPV Vaccines Aged Out No longer eligi ble based on patient's age to complete this topic MMR Vaccines Aged Out No longer eligi ble based on patient's age to complete this topic Meningococcal ACWY Vaccine Aged Out N o longer eligible based on patient's age to complete this topic Meningococcal B Vaccine Aged Out No l onger eligible based on patient's age to complete this topic RSV Immunization Patients Under 20 months Aged Out No longer eligible based on patient's age to complete this topic Varicella Vaccines Aged Out No longer eligible based on patient's age to complete this topic Procedures Procedure Name Priority Date/Time Associated Diagnosis Comments US BREAST LIMITED RIGHT Routine 09/16/2024 10:03 AM EDT Abnormal mammogram MG MAMMO DIGITAL DIAGNOSTIC W WILEY RIGHT Routine 09/16/2024 9:33 AM EDT Abnormal mammogram BONE DENSITY STUDY Routine 08/02/2019 11 :19 AM EST Asymptomatic menopausal state Other specified disorders of bone density and structure, unspecified site from Last 3 Months or Most Recently Relevant to Health Maintenance Results * US Breast Limited Right (09/16/2024 10:03 AM EDT) Anatomical Region Laterality Modality Breast Right Ultrasound 09/16/2024 9:40 AM EDT Impressions 09/16/2024 10:29 AM EDT 1. No mammographic evidence of malignancy 2. Scattered fibroglandular tissue ?? Findings and recommendations were conveyed to the patient. ? BI-RADS CATEGORY: 2 - BENIGN RECOMMENDATION: Return to annual mammography. Return to annual mammography. Mammo Location: [facility], [address] [place] [address], [id number], . -------- FINAL REPORT -------- Dictated By: Marah Valle Dictated Date: 09/16/2024 09:40 ET Assigned Physician: Marah Valle Reviewed and Electronically Signed By: Marah Valle Signed Date: 09/16/2024 10:29 ET Workstation ID: [id number] Transcribed By: Self Edit Transcribed Date: 09/16/2024 09:56 ET Narrative 09/16/2024 10:29 AM EDT RIGHTDIGITAL DIAGNOSTIC 3D MAMMOGRAPHY HISTORY: Workup for MLO slightly above the nipple middle depth asymmetries COMPARISON: Mammogram from 08/26/2024 Technique: Full-field ML, MLO spot compression FINDINGS: Right breast MLO slightly above the nipple middle depth asymmetries decrease in density on spot compression. ??Sonographic evaluation demonstrates no focal abnormality. BREAST DENSITY: B - There are scattered areas of fibroglandular density. EXAM: RIGHT BREAST TARGETED ULTRASOUND EVALUATION HISTORY: ??Workup for MLO slightly above the nipple middle depth asymmetries TECHNIQUE: Ultrasonographic examination is performed using a ??linear array transducer. Targeted right breast ultrasound from 3:00 to 9:00 of the superior breast to evaluate mammographic finding. Real-time sonographic scanning was also performed by the radiologist FINDINGS: From 3:00 to 9:00, no sonographic evidence of malignancy or other focal abnormalities were identified at the right breast in area of mammographic concern Procedure Note Marah Valle MD - 09/16/2024 RIGHTDIGITAL DIAGNOSTIC 3D MAMMOGRAPHY HISTORY: Workup for MLO slightly above the nipple middle depthasymmetries COMPARISON: Mammogram from 08/26/2024 Technique: Full-field ML, MLO spot compression FINDINGS: Right breast MLO slightly above the nipple middle depth asymmetriesdecrease in density on spot compression. Sonographic evaluationdemonstrates no focal abnormality. BREAST DENSITY: B - There are scattered areas of fibroglandular density. EXAM: RIGHT BREAST TARGETED ULTRASOUND EVALUATION HISTORY: Workup for MLO slightly above the nipple middle depthasymmetries TECHNIQUE: Ultrasonographic examination is performed using a linear arraytransducer. Targeted right breast ultrasound from 3:00 to 9:00 of thesuperior breast to evaluate mammographic finding. Real-time sonographicscanning was also performed by the radiologist FINDINGS: From 3:00 to 9:00, no sonographic evidence of malignancy or other focalabnormalities were identified at the right breast in area of mammographicconcern IMPRESSION: 1. No mammographic evidence of malignancy 2. Scattered fibroglandular tissue Findings and recommendations were conveyed to the patient. BI-RADS CATEGORY: 2 - BENIGN RECOMMENDATION: Return to annual mammography. Return to annual mammography. Mammo Location: [facility], [address] [place] [address], [id number], . -------- FINAL REPORT -------- Dictated By: Marah Valle Dictated Date: 09/16/2024 09:40 ET Assigned Physician: Marah Valle Reviewed and Electronically Signed By: Marah Valle Signed Date: 09/16/2024 10:29 ET Workstation ID: [id number] Transcribed By: Self Edit Transcribed Date: 09/16/2024 09:56 ET us Carolina Boyce MD IMG US PROCEDURES Final Result * MG Mammo Digital Diagnostic w Wiley Right (09/16/2024 9:33 AM EDT) Anatomical Region Laterality Modality Breast Right Mammography 09/16/2024 9:40 AM EDT Impressions 09/16/2024 10:29 AM EDT 1. No mammographic evidence of malignancy 2. Scattered fibroglandular tissue ?? Findings and recommendations were conveyed to the patient. ? BI-RADS CATEGORY: 2 - BENIGN RECOMMENDATION: Return to annual mammography. Return to annual mammography. Mammo Location: [facility], [address] [place] [address], [phone], . -------- FINAL REPORT -------- Dictated By: Marah Valle Dictated Date: 09/16/2024 09:40 ET Assigned Physician: Marah Valle Reviewed and Electronically Signed By: Marah Valle Signed Date: 09/16/2024 10:29 ET Workstation ID: [id number] Transcribed By: Self Edit Transcribed Date: 09/16/2024 09:56 ET Narrative 09/16/2024 10:29 AM EDT RIGHTDIGITAL DIAGNOSTIC 3D MAMMOGRAPHY HISTORY: Workup for MLO slightly above the nipple middle depth asymmetries COMPARISON: Mammogram from 08/26/2024 Technique: Full-field ML, MLO spot compression FINDINGS: Right breast MLO slightly above the nipple middle depth asymmetries decrease in density on spot compression. ??Sonographic evaluation demonstrates no focal abnormality. BREAST DENSITY: B - There are scattered areas of fibroglandular density. EXAM: RIGHT BREAST TARGETED ULTRASOUND EVALUATION HISTORY: ??Workup for MLO slightly above the nipple middle depth asymmetries TECHNIQUE: Ultrasonographic examination is performed using a ??linear array transducer. Targeted right breast ultrasound from 3:00 to 9:00 of the superior breast to evaluate mammographic finding. Real-time sonographic scanning was also performed by the radiologist FINDINGS: From 3:00 to 9:00, no sonographic evidence of malignancy or other focal abnormalities were identified at the right breast in area of mammographic concern Procedure Note Marah Valle MD - 09/16/2024 RIGHTDIGITAL DIAGNOSTIC 3D MAMMOGRAPHY HISTORY: Workup for MLO slightly above the nipple middle depthasymmetries COMPARISON: Mammogram from 08/26/2024 Technique: Full-field ML, MLO spot compression FINDINGS: Right breast MLO slightly above the nipple middle depth asymmetriesdecrease in density on spot compression. Sonographic evaluationdemonstrates no focal abnormality. BREAST DENSITY: B - There are scattered areas of fibroglandular density. EXAM: RIGHT BREAST TARGETED ULTRASOUND EVALUATION HISTORY: Workup for MLO slightly above the nipple middle depthasymmetries TECHNIQUE: Ultrasonographic examination is performed using a linear arraytransducer. Targeted right breast ultrasound from 3:00 to 9:00 of thesuperior breast to evaluate mammographic finding. Real-time sonographicscanning was also performed by the radiologist FINDINGS: From 3:00 to 9:00, no sonographic evidence of malignancy or other focalabnormalities were identified at the right breast in area of mammographicconcern IMPRESSION: 1. No mammographic evidence of malignancy 2. Scattered fibroglandular tissue Findings and recommendations were conveyed to the patient. BI-RADS CATEGORY: 2 - BENIGN RECOMMENDATION: Return to annual mammography. Return to annual mammography. Mammo Location: [facility], [address] [place] [address], [id number], . -------- FINAL REPORT -------- Dictated By: Marah Valle Dictated Date: 09/16/2024 09:40 ET Assigned Physician: Marah Valle Reviewed and Electronically Signed By: Marah Valle Signed Date: 09/16/2024 10:29 ET Workstation ID: [id number] Transcribed By: Self Edit Transcribed Date: 09/16/2024 09:56 ET us Carolina Boyce MD IMG BI PROCEDURES Final Result * BONE DENSITY STUDY (08/02/2019 11:19 AM EST) Anatomical Region Laterality Modality Bone Densitometr y 07/31/2019 7:58 AM EST Narrative 08/03/2019 7:27 AM EST BONE DENSITY STUDY INDICATION: Postmenopausal status. Osteopenia, unspecified location Study acquired on a [employer] (DEXA) densitometer. The lowest bone density of the femoral neck and total hip measurements will typically be reported. COMPARISON: None. L1-L4- Bone Density: 1.095 g/cm2 T score*: -0.7 % of young adult reference population: 93 % change from prior: Not applicable Left femoral neck- Bone Density: 0.758 g/cm2 T score*: -2.0 % of young adult reference population: 73 % change from prior: Not applicable 10 year probability of fracture- Major osteoporotic 10.4% Hip 1.5% CONCLUSION: Normal lumbar spine bone density. Left femoral neck osteopenia. * World Health Organization Definition of Osteoporosis and Osteopenia Normal = T score at or above -1.0 SD Osteopenia = T score between -1.0 and -2.5 SD Osteoporosis = T score at or below -2.5 SD [place] (Combined NHANES (ages 20-30)/[facility] (ages 20-40) reference population for spine and femur. Report reviewed and signed by : Dr. Bill Bauer MD on 08/03/2019 7:27 AM. Workstation Name - [id number] Procedure Note Bill Bauer MD - 06/30/2022 BONE DENSITY STUDY INDICATION: Postmenopausal status. Osteopenia, unspecified location Study acquired on a [employer] (DEXA) densitometer. The lowest bonedensity of the femoral neck and total hip measurements will typically bereported. COMPARISON: None. L1-L4- Bone Density: 1.095 g/cm2 T score*: -0.7 % of young adult reference population: 93 % change from prior: Not applicable Left femoral neck- Bone Density: 0.758 g/cm2 T score*: -2.0 % of young adult reference population: 73 % change from prior: Not applicable 10 year probability of fracture- Major osteoporotic 10.4% Hip 1.5% CONCLUSION: Normal lumbar spine bone density. Left femoral neck osteopenia. * World Health Organization Definition of Osteoporosis and Osteopenia Normal = T score at or above -1.0 SD Osteopenia = T score between -1.0 and -2.5 SD Osteoporosis = T score at or below -2.5 SD [place] (Combined NHANES (ages 20-30)/[facility] (ages 20-40) referencepopulation for spine and femur. Report reviewed and signed by : Dr. Bill Bauer MD on 08/03/2019 7:27AM. Workstation Name - [id number] Gerry Diana DO IMG DXA PROCEDURES Final Re sult from Last 3 Months or Most Recently Relevant to Health Maintenance Insurance MEDICARE [facility] Care Teams Wharf Labourer Relationship Specialty Start Date End Date Carolina Boyce MD [address] [place] [address] [id number] PCP - General 01/17/23
== END 2024-12-07 14:03 | disposition home or self-care (01) ==
LOC: HO.HMCFM 13:37
PROVIDERS: PCP Internal Medicine; Visit Provider Internal Medicine
DX: E03.9 Hypothyroidism, unspecified (principal); E78.00 Pure hypercholesterolemia, unspecified; D32.0 Benign neoplasm of cerebral meninges; F41.9 Anxiety disorder, unspecified

== ENCOUNTER → 2024-12-07 13:36 | Outpatient (BNVA) | payer MEDICARE, SELFPAY | PROVIDERS: PCP Internal Medicine; Visit Provider Internal Medicine | DX: E03.9 Hypothyroidism, unspecified (principal); M54.50 Low back pain, unspecified; E66.9 Obesity, unspecified; R53.1 Weakness; E78.00 Pure hypercholesterolemia, unspecified; D32.0 Benign neoplasm of cerebral meninges; F41.9 Anxiety disorder, unspecified; K50.919 Crohn's disease, unspecified, with unspecified complications; Z68.30 Body mass index [BMI] 30.0-30.9, adult; Z86.39 Personal history of other endocrine, nutritional and metabolic disease | CPT/HCPCS: 96127; 99212 ==